=== PATIENT | female | born 1995 | race Caucasian/White ===

== ENCOUNTER 2018-03-18 18:48 | Emergency (ER) | payer MEDICAID, OTHER ==
[~2018-03-18] VITALS: Ht 147.3 cm; Wt 37.0 kg
[~2018-03-18 18:48] MED LIST: PRENATAL
[2018-03-18 18:57] VITALS: BP 123/81
== END 2018-03-19 | disposition left against medical advice (07) ==
LOC: ER 23:50
DX: R10.2 Pelvic and perineal pain (principal); Z53.21 Procedure and treatment not carried out due to patient leaving prior to being seen by health care provider